=== PATIENT | female | born 1960 | race Caucasian/White ===

== ENCOUNTER 2017-01-13 13:17 | Emergency (ER) | payer OTHER ==
[~2017-01-13] VITALS: Ht 170.2 cm; Wt 85.0 kg
[2017-01-13 13:19] VITALS: TEMP 36.8; Ht 170.2 cm; Wt 85.0 kg
[2017-01-13] MEDS ORDERED: XYLOCAINE 1%/SOD BICARB 20 ML VIAL INFIL ONE (13:31)
--- NOTE | 2017-01-13 14:16 | DIAGNOSTIC IMAGING REPORT ---
RIGHT INDEX FINGER 3 VIEWS CLINICAL HISTORY: Pain status post trauma. Laceration. COMPARISON: None. DISCUSSION: No fractures or dislocations are visualized. 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 No radiopaque foreign bodies are visualized. IMPRESSION: No fractures or dislocations. No radiopaque foreign bodies are visualized. Electronically signed by: Collin Spring M.D. 01/13/2017 2:15 PM Dictated Date/Time: 01/13/2017 2:14 PM
[2017-01-13] MEDS ORDERED: DIPHTHERIA/TETANUS/PERTUSSIS 0.5 ML SYR/VIAL IM. ONE (14:45)
[2017-01-13] MEDS ORDERED: CEPH500C PO (15:04)
--- NOTE | 2017-01-13 15:05 | EMERGENCY ROOM VISIT NOTE ---
ED Visit Note First contact with patient: 13:31 Chief Complaint: "Right finger cut". History of Present Illness: This patient is a 56-year-old female who presents to the Emergency Department via private vehicle for evaluation of their right thumb laceration. Patient sustained the laceration while attempting to clean her edger, around 1 PM this afternoon when she accidentally turned this piece of equipment on slicing her finger. They report a moderate amount of bleeding initially. They admit to minimal any numbness or tingling into the distal extremity. They report no decreased range of motion of the affected digit. They have tried nothing for the pain. Patient rates her current discomfort as a 4/10. Patient's Tetanus status is NOT currently up-to-date. Medications: As noted below Allergies: As noted below PMH: No pertinent past medical history SHx: Patient lives locally with family ROS: All pertinent positive and negative review of systems are appropriately documented in the History of Present Illness. Physical Exam: VITAL SIGNS - Vital signs and nursing notes were reviewed. GENERAL -56-year-old female appearing her stated age who is in no acute distress. Communicates well with provider and answers questions appropriately. SKIN - There is a 1 cm long laceration noted to the dorsal aspect of the right second digit on the skin overlying the DIP joint. The edges gape apart with traction. No foreign bodies appreciated. Upon further examination there are no deep structures including vessel, tendon, or bony structures appreciated. There is no active bleeding noted. MUSCULOSKELETAL - Laceration as described above. +5/5 strength appreciated of the affected digit. Full range of motion of the affected digit. NEUROLOGIC - she is neurovascularly intact in this digit VASCULAR - Capillary refill was brisk. IMAGING: RIGHT INDEX FINGER 3 VIEWS CLINICAL HISTORY: Pain status post trauma. Laceration. COMPARISON: None. DISCUSSION: No fractures or dislocations are visualized. 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 No radiopaque foreign bodies are visualized. IMPRESSION: No fractures or dislocations. No radiopaque foreign bodies are visualized. Electronically signed by: Collin Spring M.D. 01/13/2017 2:15 PM Dictated Date/Time: 01/13/2017 2:14 PM ED Course: Patient was seen and evaluated by myself. Radiograph was obtained to rule out fracture. Results as above. No acute fracture. Risks and benefits of performing primary wound closure versus no repair were discussed with the patient who verbalizes understanding. Verbal consent was obtained prior to performing the procedure. 5 cc of 1% buffered lidocaine was used to perform a digital block of the right second digit. The wound was cleansed and prepped in the typical sterile fashion utilizing normal saline and Betadine. The wound was sterilely draped. Once proper anesthetization was established, the wound was further examined and demonstrated no deep involvement. The wound was copiously irrigated with normal saline and Betadine. Different types of wound closure were discussed with the patient, and as the wound was thoroughly irrigated and found to be clean I do believe at this time Dermabond is appropriate as stitching I think would not provide adequate closure as this is superficial. Dermabond was applied. Patient tolerated the procedure well. No complications were met.A metal splint was applied to the finger for comfort. Patient received their Adacel vaccination. Patient educated on worrisome symptoms for return visit to the Emergency Department. Patient discharged to home in good condition. If her finger pain persists she is to return or follow-up with the family doctor. Due to the dirty nature of the wound initially, she'll be prophylaxed with Keflex 500 mg 3 times a day for 5 days. In the evaluation and treatment of this patient, the following differential diagnoses were considered: Finger Fracture, Finger Dislocation, Finger Sprain, Finger Contusion, Jersey Finger, or Mallet Finger. Current/Historical Medications Scheduled Cephalexin Monohydrate (Keflex), 500 MG PO TID Allergies Coded Allergies: Aspirin (Unverified Allergy, Unknown, UNKNOWN, 01/13/17) Codeine (Unverified Allergy, Unknown, UNKNOWN, 01/13/17) Morphine (Unverified Allergy, Unknown, UNKNOWN, 01/13/17) Sulfamethoxazole w/Trimethoprim (Unverified Allergy, Unknown, UNKNOWN, 01/13) Vital Signs Date Time Temp Pulse Resp B/P (MAP) Pulse Ox O2 Delivery O2 Flow Rate FiO2 01/13/17 15:18 77 18 150/92 96 Room Air 01/13/17 13:19 36.8 102 20 148/95 95 Room Air Medications Administered Medications (Trade) Dose Ordered Sig/Baldomero Route Start Time Stop Time Status Last Admin Dose Admin Lidocaine HCl (Buffered Lidocaine 1% Inj) 20 ml STK-MED ONCE INFIL 01/13/17 13:31 01/13/17 13:32 DC 01/13/17 13:31 20 ML Diphtheria/ Pertussis/Tetanus Vacc (Adacel Inj) 0.5 ml ONCE ONCE IM. 01/13/17 14:45 01/13/17 14:46 DC 01/13/17 14:40 0.5 ML Departure Information Impression Primary Impression: Laceration Dispostion Home / Self-Care Condition GOOD Prescriptions Cephalexin Monohydrate (Keflex) 500 Mg Cap 500 MG PO TID for 5 Days, #15 CAP Prov: Luis Felipe Thibodeaux PA-C 01/13/17 Referrals No Doctor, Assigned (PCP) Patient Instructions My [facility] Additional Instructions Discharge Instructions: You have been missing and Dermabond was placed on your finger. This will dissolve over time. Please wear the splint for comfort. You've been prescribed Keflex 500 mg every 8 hours for 5 days. This is to help prevent infection of your finger. Proper wound care is essential for adequate wound healing and infection prevention. You can shower and clean the wound with soap and water. Do not scour over the wound, pat dry with a towel. Do not submerse the wound (i.e. bathe or dish wash) until the glue has dissolved. Look for signs of infection of the wound including: increased pain, swelling, foul discharge, streaking, or increased temperature. If any of these are noticed you should return to the Emergency Department for further assessment and treatment. As with any laceration you may have received nerve damage to the surrounding tissues. This damage may or may not be permanent. You should keep the area covered with sunscreen for the first 6 months to 1 year when at risk for exposure to help minimize scarring. You can also use scar reducing creams or Vitamin E oil to help minimize scarring. For pain control, you can use the following [id number] medicines (if >12 yo): - Regular strength (325mg/tab) Tylenol (acetaminophen) 2 tabs every 4-6 hours as needed. Do not exceed 12 tablets in a 24 hour period. Avoid taking more than 3 grams (3000 mg) of Tylenol per day. This includes any other sources of acetaminophen you may take on a regular basis. - Regular strength (200 mg/tab) Advil (ibuprofen) 1-2 tabs every 4-6 hours as needed. Do not exceed a dose of 3200 mg per day. Return to the emergency department if your symptoms worsen despite treatment course outlined above. If your finger pain persists please return or follow-up with her family doctor.
[2017-01-13 15:18] VITALS: BP 150/92; PULSE 77; O2SAT 96
== END 2017-01-13 15:13 | disposition home or self-care (01) ==
LOC: C.EDB 13:18 → C.EDD 15:13
DX: S61.011A Laceration without foreign body of right thumb without damage to nail, initial encounter (principal); W45.8XXA Other foreign body or object entering through skin, initial encounter; Z23 Encounter for immunization